=== PATIENT | female | born 1965 | race Caucasian/White ===

== ENCOUNTER 2019-07-05 16:23 | Emergency (ER) | payer BC, OTHER ==
[2019-07-05 17:16] VITALS: BP 128/77
--- NOTE | 2019-07-05 17:43 | UC ---
Knee Pain HPI - HPI Summary HPI Summary: 53-year-old female who started experiencing right knee pain 2 days ago and has mild swelling today. She denies any injury. She has no chronic knee problems and does not feel like the knee is going to give out. - History of Current Complaint Chief Complaint: UCLowerExtremity Stated Complaint: KNEE PAIN Time Seen by Provider: 07/05/19 17:28 Hx Obtained From: Patient Hx Last Menstrual Period: 2-3 months ago ?: No Onset/Duration: Gradual Onset Severity Initially: Mild Severity Currently: Mild Pain Intensity: 4 Character: Aching Aggravating Factor(s): Movement, Weight Bearing Alleviating Factor(s): Rest Associated Signs And Symptoms: Positive: Swelling Able to Bear Weight: Yes - Allergies/Home Medications Allergies/Adverse Reactions: Allergies Allergy/AdvReac Type Severity Reaction Status Date / Time No Known Allergies Allergy Verified 07/05/19 17:16 PMH/Surg Hx/FS Hx/Imm Hx Previously Healthy: Yes - Surgical History Surgical History: None Surgery Procedure, Year, and Place: 2001 - Family History Known Family History: Positive: Hypertension - Social History Lives: With Family Alcohol Use: None Substance Use Type: None Smoking Status (MU): Former Smoker Review of Systems All Other Systems Reviewed And Are Negative: Yes Musculoskeletal: Positive: Other: - Right knee pain which has gradually worsened over the past 2 days and is mildly swollen and tender today. No known injury. Is Patient Immunocompromised?: No Physical Exam Appearance: Well-Appearing, No Pain Distress, Well-Nourished Vital Signs: Initial Vital Signs Temp 98.4 F 07/05/19 17:12 Pulse 106 07/05/19 17:12 Resp 18 07/05/19 17:12 BP 128/77 07/05/19 17:12 Pulse Ox 99 07/05/19 17:12 Vital Signs Reviewed: Yes Musculoskeletal: Positive: Strength Intact, ROM Intact - Patellar and knee ligaments are intact. Mild tenderness on palpation to the medial aspect of the right knee. Minimal swelling is noted. No erythema, bruising or deformity is noted. Good peripheral pulses neuro sensation and capillary refill. Neurological: Positive: Alert, Muscle Tone Normal Psychological Exam: Normal Skin Exam: Normal Knee Pain Course/Dx - Course Course Of Treatment: Right knee x-ray:FINDINGS: The soft tissues are unremarkable. The bone mineralization is within normal limits. No fracture is identified. Anatomic alignment is maintained. There is mild osteoarthropathy of the medial tibiofemoral compartment. IMPRESSION: 1. NO EVIDENCE FOR FRACTURE. 2. ONLY MILD OSTEOARTHROPATHY OF THE MEDIAL TIBIOFEMORAL COMPARTMENT I am going to place the patient in a knee immobilizer for comfort. She can continue ibuprofen every 8 hours for knee pain or swelling. I want her to follow-up with the orthopedist if she has no improvement in pain or swelling. She can apply warm moist compresses to the area 4-6 times a day for 20 minutes each time. - Differential Dx/Diagnosis Provider Diagnosis: Right knee pain Discharge ED - Sign-Out/Discharge Documenting (check all that apply): Patient Departure All imaging exams completed and their final reports reviewed: Yes - Discharge Plan Condition: Fair Disposition: HOME Patient Education Materials: Knee Pain (ED) Referrals: Dank Polo MD [Primary Care Provider] - Rachelle Worthy MD [Medical Doctor] - Additional Instructions: May take ibuprofen every 8 hours for pain. Elevate as much as possible. Use the knee immobilizer as needed. Definite follow-up with the orthopedist on Sunday or Sunday if continued pain and swelling. - Billing Disposition and Condition Condition: FAIR Disposition: Home
== END 2019-07-05 18:14 | disposition home or self-care (01) ==
LOC: UCEAST 16:23
DX: M25.561 Pain in right knee (principal); Z87.891 Personal history of nicotine dependence
CPT/HCPCS: 99212; G0463